=== PATIENT | male | born 1990 | race Caucasian/White ===

== ENCOUNTER 2020-02-11 10:09 | Emergency (ER) | payer SELFPAY ==
[2020-02-11 10:18] VITALS: BP 125/69; PULSE 59; RESP 16; TEMP 36.8; O2SAT 100
--- NOTE | 2020-02-11 10:29 | ED.GENADULT ---
HPI - General Adult General Chief complaint: Nausea/Vomiting/Diarrhea Stated complaint: stomach pain Time Seen by Provider: 02/11/20 10:23 Source: patient and RN notes reviewed Mode of arrival: ambulatory Limitations: no limitations History of Present Illness HPI narrative: Patient presents today with a 2-day history of nausea. Denies any additional symptoms to include vomiting, fever, abdominal pain, diarrhea, constipation. 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 Also states that his son was sick with similar symptoms last week, but has recovered. He has tried no [id number] medication for symptoms prior to arrival. States he does drink water and Gatorade throughout the day at work. He is presenting today requesting a work note because he called into work today. MD complaint: Nausea Related Data Allergies Allergy/AdvReac Type Severity Reaction Status Date / Time bacitracin AdvReac Redness of Verified 02/11/20 10:23 [From Triple Antibiotic] Skin neomycin AdvReac Redness of Verified 02/11/20 10:23 [From Triple Antibiotic] Skin polymyxin B AdvReac Redness of Verified 02/11/20 10:23 [From Triple Antibiotic] Skin Review of Systems Review of Systems: Narrative: CONSTITUTIONAL: Denies body aches, fever, chills, or sweats. EYES: Denies visual changes, redness, or discharge. ENT: Denies rhinorrhea, congestion, sore throat, or otalgia. CARDIOVASCULAR: Denies chest pain, palpitations, or edema. RESPIRATORY: Denies cough or dyspnea. GASTROINTESTINAL: Denies abdominal pain, vomiting, or diarrhea.+Nausea GENITOURINARY: Denies dysuria or hematuria. SKIN: Denies rash, itching, or wounds. MUSCULOSKELETAL: Denies back pain, joint pain, or myalgia. NEUROLOGIC: Denies headache, numbness, tingling, or weakness. PSYCH: Denies depression or anxiety. PMFSH Comments At time of signature, I have reviewed and agree with nursing past medical, surgical, social and family history unless otherwise noted. Please see nursing chart for further information. There is no relevant family history pertinent to the presenting complaint Exam Narrative: Exam Narrative: GENERAL: Well-appearing, well-nourished, and in no acute distress. HEAD: Normocephalic, atraumatic. EYES: EOMI. No redness or drainage. Conjunctivae normal. ENT: Mucous membranes pink and moist. Throat normal. Uvula midline. NECK: Normal AROM. Supple. No lymphadenopathy. CHEST: No respiratory distress. Clear to auscultation. HEART: Regular rate and rhythm. No murmur appreciated. Normal peripheral pulses. ABDOMEN: Soft, nontender, nondistended, normal active bowel sounds. MUSCULOSKELETAL: No bony tenderness. EXTREMITIES: Normal range of motion. No edema. SKIN: Warm, dry, no rash. Capillary refill normal. Normal skin turgor. NEURO: No focal deficits. Alert and oriented x3. Gait steady. PSYCH: Normal affect. No signs of depression or anxiety. Course Vital Signs Vital signs: Vital Signs Temperature 98.2 F 02/11/20 10:18 Pulse Rate 59 L 02/11/20 10:18 Respiratory Rate 16 02/11/20 10:18 Blood Pressure 125/69 02/11/20 10:18 Pulse Oximetry 100 02/11/20 10:18 Temperature 98.2 F 02/11/20 10:18 Pulse Rate 59 L 02/11/20 10:18 Respiratory Rate 16 02/11/20 10:18 Blood Pressure 125/69 02/11/20 10:18 Pulse Oximetry 100 02/11/20 10:18 Reviewed. Pt has been instructed to follow up with his PCP regarding his elevated blood pressure today. Medical Decision Making Differential Diagnosis Differential Diagnosis: Viral illness, heat related illness, dehydration, malingering Vital Signs Vital Signs: Vital Signs Temperature 98.2 F 02/11/20 10:18 Pulse Rate 59 L 02/11/20 10:18 Respiratory Rate 16 02/11/20 10:18 Blood Pressure 125/69 02/11/20 10:18 Pulse Oximetry 100 02/11/20 10:18 Temperature 98.2 F 02/11/20 10:18 Pulse Rate 59 L 02/11/20 10:18 Respiratory Rate 16
== END 2020-02-11 10:47 | disposition home or self-care (01) ==
PROVIDERS: Emergency Provider Nurse Practitioner; PCP Pediatrics
DX: R11.0 Nausea (principal)
CPT/HCPCS: 99201; G0463

== ENCOUNTER 2020-12-22 10:11 | Emergency (ER) | payer SELFPAY ==
[2020-12-22 10:22] VITALS: BP 147/89; PULSE 74; RESP 16; TEMP 36.6; O2SAT 100
[2020-12-22 11:16] LABS: Add Urine Microscopic? NO; Appearance Urine Clear (Clear); Bilirubin Urine Negative (Negative); Blood Urine Negative (Negative); Color Urine Straw (Yellow); Glucose Urine UA Negative (Negative); Ketones Urine Negative (Negative); Leukocyte Esterase Ur Negative LEU/UL (Negative); Nitrate Urine Negative (Negative); Protein Urine Negative (Negative); Urobilinogen Urine Negative mg/dL (<2.0)
[2020-12-22 11:18] LABS: Specific Grav Ur 1.003 (1.001-1.035)
--- NOTE | 2020-12-22 11:41 | ED.GENADULT ---
HPI - General Adult General Chief complaint: Urogenital-Male Stated complaint: Genital Discomfort Time Seen by Provider: 12/22/20 10:23 Source: patient and RN notes reviewed Mode of arrival: ambulatory Limitations: no limitations History of Present Illness HPI narrative: Patient is a 30-year-old male who presents to emergency department for evaluation of scrotal rash that has been present since June has been to emergency department and primary care for this with no resolution patient notes that he feels like there is a vein that he did not notice before and scrotum. Patient has been tested for STDs multiple times with negative results and denies any concern for STD at this time. Patient is requesting a referral for urology. On arrival patient in no distress no other complaints Related Data Allergies Allergy/AdvReac Type Severity Reaction Status Date / Time bacitracin AdvReac Redness of Verified 12/22/20 10:25 [From Triple Antibiotic] Skin neomycin AdvReac Redness of Verified 12/22/20 10:25 [From Triple Antibiotic] Skin polymyxin B AdvReac Redness of Verified 12/22/20 10:25 [From Triple Antibiotic] Skin Review of Systems Review of Systems: All systems reviewed & are unremarkable except as noted in HPI and below PMFSH Social History Social History (Updated 12/22/20 @ 11:45 by Migel Ibrahim PA-C) Smoking status: Never smoker Exam Narrative: Exam Narrative: GENERAL: Well-appearing, well-nourished, and in no acute distress. HEAD: Normocephalic, atraumatic. EYES: PERRLA and EOMI. ENT: Nares clear, no rhinorrhea or epistaxis. Mucous membranes moist. CHEST: Clear to auscultation. No respiratory distress. No wheezes rales or rhonchi HEART: Regular rate and rhythm. No murmur heard. EXTREMITIES: Normal range of motion. No edema. MALE GENITOURINARY: Normal male genitourinary SKIN: Warm, dry, no rash. NEURO: No focal deficits. Alert and oriented x3. PSYCH: Normal mood and affect. Course Course Emergency Course: Patient presented with ongoing concern for scrotal issues there is nothing obvious on exam patient will be referred to urology as planned and given reasons to return Vital Signs Vital signs: Vital Signs Temperature 97.8 F 12/22/20 10:22 Pulse Rate 74 12/22/20 10:22 Respiratory Rate 16 05/07/21 10:22 Blood Pressure 147/89 H 12/22/20 10:22 Pulse Oximetry 100 12/22/20 10:22 Temperature 97.8 F 12/22/20 10:22 Pulse Rate 74 12/22/20 10:22 Respiratory Rate 16 12/22/20 10:22 Blood Pressure 147/89 H 12/22/20 10:22 Pulse Oximetry 100 12/22/20 10:22 Medical Decision Making MDM Narrative Medical decision making narrative: Patient with normal male genitourinary as noted will be sent home. Patient provided with urology follow-up also advised to follow with primary care normal urinalysis Vital Signs Vital Signs: Vital Signs Temperature 97.8 F 12/22/20 10:22 Pulse Rate 74 12/22/20 10:22 Respiratory Rate 16 12/22/20 10:22 Blood Pressure 147/89 H 12/22/20 10:22 Pulse Oximetry 100 12/22/20 10:22 Temperature 97.8 F 12/22/20 10:22 Pulse Rate 74 12/22/20 10:22 Respiratory Rate 16 12/22/20 10:22 Blood Pressure 147/89 H 12/22/20 10:22 Pulse Oximetry 100 12/22/20 10:22 Lab Data Labs: Lab Results 12/22/20 Range/Units 11:09 Urine Color Straw (Yellow) Urine Appearance Clear (Clear) Urine pH 7.0 (5.0-9.0) Ur Specific [place] 1.003 (1.001-1.035) Urine Protein Negative (Negative) mg/dL Urine Glucose (UA) Negative (Negative) mg/dL Urine Ketones Negative (Negative) mg/dL Ur Blood (Man) Negative (Negative) Urine Nitrate Negative (Negative) Urine Bilirubin Negative (Negative) Urine Urobilinogen Negative (<2.0) mg/dL Leukocyte Esterase Rfl Negative (Negative) KRYSTAL/UL Discharge Plan Discharge Clinical Impression: Rash and nonspecific skin eruption Patient Disposition: Home, M[place]
== END 2020-12-22 11:57 | disposition home or self-care (01) ==
PROVIDERS: Emergency Medicine Emergency Medical Services; Emergency Provider Emergency Medicine
DX: R21 Rash and other nonspecific skin eruption (principal)
CPT/HCPCS: 81003; 99283

== ENCOUNTER 2022-02-20 08:30 | Emergency (ER) | payer SELFPAY ==
--- NOTE | ~2022-02-20 | XR_ITS ---
EXAMINATION: XR foot LT min 3V DATE: 02/20/2022 08:54 INDICATION: Left foot pain TECHNIQUE: Dorsoplantar, lateral, and 2 oblique views of the left foot were obtained. COMPARISON: None. FINDINGS: Bone alignment is normal. There is no fracture. There is soft tissue swelling of the fifth toe. IMPRESSION: 1. No acute osseous abnormality. Reviewed, dictated and finalized at location B.
--- NOTE | 2022-02-20 08:33 | ED.LOWEXIN ---
HPI - Extremity Injury (Lower) General Chief Complaint: Extremity Injury, Lower Stated Complaint: left foot pinky toe injury Time Seen by Provider: 02/20/22 08:33 Source: patient and RN notes reviewed History of Present Illness HPI Narrative: Patient is a 31-year-old male who presents the urgent care with complaints of left pinky toe pain, swelling and bruising. 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 Patient states that the pain has gotten much better but he is concerned about going back to work and walking 15 miles per day. Patient has been taking Tylenol/ibuprofen and using ice. No other acute complaints. No acute distress noted. Patient aware of the plan of care. Some parts of this dictation were generated by voice recognition software and may contain typographical and/or grammatical inaccuracies. Related Data Home Medications Medication Instructions Recorded Confirmed No Home Medications 02/20/22 02/20/22 Allergies Allergy/AdvReac Type Severity Reaction Status Date / Time bacitracin AdvReac Redness of Verified 02/20/22 08:41 [From Triple Antibiotic] Skin neomycin AdvReac Redness of Verified 02/20/22 08:41 [From Triple Antibiotic] Skin polymyxin B AdvReac Redness of Verified 02/20/22 08:41 [From Triple Antibiotic] Skin Review of Systems Review of Systems: CONSTITUTIONAL: Denies fever, chills, or sweats. EYES: Denies visual changes, redness, or discharge. ENT: Denies rhinorrhea, congestion, sore throat, or otalgia. CARDIOVASCULAR: Denies chest pain, palpitations, or edema. RESPIRATORY: Denies cough or dyspnea. GASTROINTESTINAL: Denies abdominal pain, nausea, vomiting, or diarrhea. GENITOURINARY: Denies dysuria or hematuria. SKIN: Denies rash or itching. MUSCULOSKELETAL: Reports of bruising and pain to the left pinky toe NEUROLOGIC: Denies headache, numbness, or weakness. All other systems reviewed are negative, except as documented in HPI. [facility] Social History Social History (Updated 12/22/20 @ 11:45 by Migel Ibrahim, PACésarC) Smoking status: Never smoker Comments At the time of my signature, I reviewed and agree with the nursing past medical, surgical, social, and family history. There is no relevant family history pertinent to the patient complaint. Exam Narrative: GENERAL: This is a well-nourished, well-developed patient, in no apparent distress. HEAD: normocephalic, atraumatic. EYES: PERRL. Sclera clear/white. Vision is grossly intact. EARS: External ears normal NOSE: External nose normal with no obvious nasal discharge, nares without redness, no rhinorrhea. THROAT: Mucous membranes moist NECK: Neck supple CARDIOVASCULAR: Regular rate and rhythm without murmurs, gallops, or rubs. RESPIRATORY: Clear to auscultation. Breath sounds equal bilaterally. No wheezes, rales, or rhonchi. SKIN: warm, intact with no suspicious lesions or rash, good texture and turgor. NEURO: awake, alert, and oriented to person, place and time. There were no obvious focal neurologic abnormalities. EXTREMITIES: Moderate ecchymosis noted to the left fifth digit with surrounding ecchymosis and tenderness extending to the mid dorsal foot covering the fifth through third metatarsals. Positive strong left pedal pulse with capillary refill less than 2 seconds. Course Course Level of Care: Express Care Visit Vital Signs Vital signs: Vital Signs Temperature 97.7 F 02/20/22 08:35 Pulse Rate 63 02/20/22 08:35 Respiratory Rate 16 02/20/22 08:35 Blood Pressure 132/71 02/20/22 08:35 Pulse Oximetry 99 02/20/22 08:35 Oxygen Delivery Room Air 02/20/22 08:35 Temperature 97.7 F 02/20/22 08:45 Pulse Rate 63 02/20/22 08:45 Respiratory Rate 16 02/20/22 08:45 Blood Pressure 132/71 02/20/22 08:45 Pulse Oximetry 99 02/20/22 08:45 Oxygen Delivery Room Air 02/20/22 08:45 Reviewed MDM - Extremity Injury (Low
[2022-02-20 08:35] VITALS: BP 132/71; PULSE 63; RESP 16; TEMP 36.5; O2SAT 99
[2022-02-20 08:45] VITALS: BP 132/71; PULSE 63; RESP 16; TEMP 36.5; O2SAT 99
== END 2022-02-20 09:09 | disposition home or self-care (01) ==
PROVIDERS: Emergency Provider Nurse Practitioner Family
DX: S93.505A Unspecified sprain of left lesser toe(s), initial encounter (principal); W22.09XA Striking against other stationary object, initial encounter
CPT/HCPCS: 73630; 99213; G0463

== ENCOUNTER 2022-07-31 12:29 | Emergency (ER) | payer SELFPAY ==
[2022-07-31 12:46] VITALS: BP 123/64; PULSE 73; RESP 18; TEMP 36.9; O2SAT 98
--- NOTE | 2022-07-31 14:29 | ED.MALEGU ---
HPI - Male Genitourinary General Chief complaint: Urogenital-Male Stated complaint: Urinary Problem Time Seen by Provider: 07/31/22 14:29 Source: patient and RN notes reviewed Mode of arrival: ambulatory Limitations: no limitations History of Present Illness HPI Narrative: 31 y/o male presented for c/o about 3 months of urinary frequency, urgency stating it has worsened over the past 2 weeks. Denies abdominal pain, back pain, nausea, vomiting, diarrhea, hematuria, urethral discharge/lesions, fevers or chills. Denies concern for STD at this time. Related Data Home Medications Medication Instructions Recorded Confirmed No Home Medications 02/20/22 07/31/22 Allergies Allergy/AdvReac Type Severity Reaction Status Date / Time bacitracin AdvReac Redness of Verified 07/31/22 14:00 [From Triple Antibiotic] Skin neomycin AdvReac Redness of Verified 07/31/22 14:00 [From Triple Antibiotic] Skin polymyxin B AdvReac Redness of Verified 07/31/22 14:00 [From Triple Antibiotic] Skin Review of Systems Review of Systems: CONSTITUTIONAL: Denies body aches, fever, chills, or sweats. CARDIOVASCULAR: Denies chest pain, palpitations, or edema. RESPIRATORY: Denies cough or dyspnea. GASTROINTESTINAL: Denies abdominal pain, nausea, vomiting, or diarrhea. GENITOURINARY: Reports dysuria, frequency, urgency, denies hematuria, flank pain SKIN: Denies rash, itching, or wounds. MUSCULOSKELETAL: Denies back pain or myalgia. [facility] Social History Social History Smoking status: Never smoker Comments At time of signature, I have reviewed and agree with nursing past medical, surgical, social and family history unless otherwise noted. Please see nursing chart for further information. There is no relevant family history pertinent to the presenting complaint Exam Narrative: GENERAL: Well-appearing and in no acute distress. CHEST: No respiratory distress. Clear to auscultation. HEART: Regular rate and rhythm. ABDOMEN: Soft, nontender, nondistended, normal active bowel sounds. No CVA tenderness deferred SKIN: Warm, dry, no rash. NEURO: No focal deficits. Alert and oriented x3. Gait steady. PSYCH: Normal affect. Course Course Emergency Course: Patient is aware of diagnosis, understands and agrees to treatment plan. Anticipatory guidance given. Patient agrees to follow-up as directed and is aware of reasons to seek care at the emergency department. Portions of this record may have been created with voice recognition software Level of Care: Express Care Visit Vital Signs Vital signs: Vital Signs Temperature 98.5 F 07/31/22 12:46 Pulse Rate 73 07/31/22 12:46 Respiratory Rate 18 07/31/22 12:46 Blood Pressure 123/64 07/31/22 12:46 Pulse Oximetry 98 07/31/22 12:46 Oxygen Delivery Room Air 07/31/22 12:46 Temperature 98.5 F 07/31/22 12:46 Pulse Rate 73 07/31/22 12:46 Respiratory Rate 18 07/31/22 12:46 Blood Pressure 123/64 07/31/22 12:46 Pulse Oximetry 98 07/31/22 12:46 Oxygen Delivery Room Air 07/31/22 12:46 Reviewed MDM - Male Genitourinary MDM Narrative Medical decision making narrative: Exam findings and UA show no apparent uti. Based on cc, Urine specimen collected for GC, chlamydia, trich. Informed Pt will be contacted w/ results when they become available if they are positive. Discussed with patient that it takes up to 7 days for results of cultures to be released and explained that we may treat empirically at this time. Declines treatment at this time and will return should tests be positive. I have instructed the patient to return to the ER at any time if there are any new or worsening symptoms. The patient expressed understanding of and agreement with this plan. Differential Diagnosis Differential diagnosis: Likely urinary tract infection, urethritis, epididymitis and genital herpes simplex L
== END 2022-07-31 14:45 | disposition home or self-care (01) ==
PROVIDERS: Emergency Provider Nurse Practitioner Family
DX: R30.0 Dysuria (principal)
CPT/HCPCS: 81003; 87491; 87591; 87661; 99213; G0463

== ENCOUNTER 2022-12-25 12:45 | Emergency (ER) | payer OTHER, SELFPAY ==
--- NOTE | ~2022-12-25 | CT_ITS ---
EXAMINATION: CT abdomen pelvis wo con DATE: 12/25/2022 13:21 INDICATION: Umbilical hernia TECHNIQUE: Computed tomography (CT) of the abdomen and pelvis was performed without intravenous contr ast. The dose-length product was 442.85 mGy-cm. Automated exposure control and iterative reconstructi on technique were employed. COMPARISON: None. FINDINGS: Lung bases are unremarkable. Heart size normal. No significant pleural or pericardial effus ions. There is a small supraumbilical ventral hernia containing fat and soft tissue. Fat necrosis at the hernia site cannot be excluded. Small fat-containing umbilical hernia. The liver, spleen, pancreas, adrenal glands and kidneys are unremarkable for noncontrast CT. Gallblad jerardo is present. Nonobstructive bowel gas pattern. Normal appendix. No abnormal pelvic masses or fluid collections. No significant vascular abnormality. No lymphadenopathy. No acute osseous abnormality. IMPRESSION: 1. Small supraumbilical ventral hernia containing fat with possible fat necrosis. 2: Small fat-containing umbilical hernia. Reviewed, dictated and finalized at location B. IMPRESSION: 1. Small supraumbilical ventral hernia containing fat with possible fat necrosi s. 2: Small fat-containing umbilical hernia.
[2022-12-25 12:47] VITALS: BP 151/83; PULSE 84; RESP 16; TEMP 37.1; O2SAT 99
[2022-12-25 13:25] LABS: Appearance Urine Clear (Clear); Bilirubin Urine Negative (Negative); Blood Urine Negative (Negative); Color Urine Yellow (Yellow); Glucose Urine UA Negative (Negative); Ketones Urine Negative (Negative); Leukocyte Esterase Ur Negative LEU/UL (Negative); Nitrate Urine Negative (Negative); Protein Urine Negative (Negative); Specific Grav Ur 1.015 (1.001-1.035); Urobilinogen Urine 0.2 mg/dL (<2.0); pH Urine 7.5 (5.0-9.0)
[2022-12-25 13:26] LABS: Add Urine Microscopic? NO; Basophils Absolute Auto 0.1 K/mm3 (0.0-0.1); Basophils Percent Auto 0.9 % (0.2-1.2); Eosinophils Absolute Auto 0.3 K/mm3 (0-0.3); Eosinophils Percent Auto 2.9 % (0-4.4); Hematocrit 48.4 % (42.0-52.0); Hemoglobin 16.2 g/dL (14.0-18.0); Immature Granulocyte Absolute 0.04 K/mm3 (0.00-0.031); Immature Granulocyte Percent A 0.4 % (0-0.5); Immature Platelet Fraction Pct 25.8 % (0.9-11.2); Lymphocytes Absolute Auto 2.16 K/mm3 (0.9-3.2); Lymphocytes Percent Auto 21.3 % (18.3-44.2); Mean Corpuscular HGB Conc 33.5 g/dl (32-36); Mean Corpuscular Hemoglobin 32.3 pg (26-34); Mean Corpuscular Volume 96.6 fl (80-100); Mean Platelet Volume 12.9 fl (7.4-10.4); Monocytes Absolute Auto 0.6 K/mm3 (0.1-0.6); Monocytes Percent Auto 5.9 % (2.6-8.5); Neutrophils Percent Auto 68.6 % (45.5-73.1); Platelet Count Result 171 k/mm3 (150-375); Red Blood Count 5.01 M/mm3 (4.6-6.20); Red Cell Distribution Width 12.9 % (11.5-14.5); White Blood Count 10.2 K/mm3 (4.5-10.0)
[2022-12-25 13:32] LABS: Alanine Aminotransferase 45 U/L (6-50); Alkaline Phosphatase 47 U/L (38-126); Anion Gap 9 mmol/L (8-16); Aspartate Amino Transferase 43 U/L (17-59); Bilirubin,Total 0.7 mg/dL (0.2-1.3); Blood Urea Nitrogen 12 mg/dL (9-20); Calcium 9.5 mg/dL (8.4-10.2); Carbon Dioxide 27 mmol/L (22-30); Chloride 103 mmol/L (98-107); Estimated CRCL calculation 118 ml/min; Estimated Glomerular Filt Rate > 60; Glucose 116 mg/dL (65-110); Lipase 55 U/L (23-300); Potassium 3.8 mmol/L (3.4-5.0); Sodium 139 mmol/L (137-145)
--- NOTE | 2022-12-25 13:35 | ED.ABDPAIN ---
HPI - Abdominal Pain General Chief Complaint: Abdominal Pain Stated Complaint: hernia Time Seen by Provider: 12/25/22 12:56 History of Present Illness HPI narrative: 32-year-old male presents to the emergency room for evaluation of a lump to his right upper abdomen. Patient states lump is painful, and is more obviously present with standing. States the lump is not present when lying flat. States when he stands up he is able to push the lump back into his abdomen. Denies any diarrhea or constipation. Denies fevers. Denies dysuria. Related Data Home Medications Medication Instructions Recorded Confirmed No Home Medications 02/20/22 07/31/22 Allergies Allergy/AdvReac Type Severity Reaction Status Date / Time bacitracin AdvReac Redness of Verified 12/25/22 12:50 [From Triple Antibiotic] Skin neomycin AdvReac Redness of Verified 12/25/22 12:50 [From Triple Antibiotic] Skin polymyxin B AdvReac Redness of Verified 12/25/22 12:50 [From Triple Antibiotic] Skin Review of Systems Review of Systems: CONSTITUTIONAL: Denies fever, chills, or sweats. EYES: Denies visual changes, redness, or discharge. ENT: Denies rhinorrhea, congestion, sore throat, or otalgia. CARDIOVASCULAR: Denies chest pain, palpitations, or edema. RESPIRATORY: Denies cough or dyspnea. GASTROINTESTINAL: Denies abdominal pain, nausea, vomiting, or diarrhea. GENITOURINARY: Denies dysuria or hematuria. SKIN: Denies rash or itching. MUSCULOSKELETAL: Denies back pain, joint pain, or myalgia. NEUROLOGIC: Denies headache, numbness, dizziness, or weakness. PSYCHIATRIC: Denies anxiety or depression. [facility] Social History Social History Smoking status: Never smoker Exam Narrative: GENERAL: Well-appearing, well-nourished, no physical limitations, and in no acute distress. HEAD: Normocephalic, atraumatic. EYES: Conjunctivae normal, PERRLA and EOMI. CHEST: Clear to auscultation. No respiratory distress. No wheezes rales or rhonchi. HEART: Regular rate and rhythm. No murmur heard. Normal peripheral pulses. ABDOMEN: Soft, nontender, nondistended, normal active bowel sounds. Reducible right ventral hernia. No erythema. EXTREMITIES: Normal range of motion. No edema. No clubbing or cyanosis SKIN: Warm, dry, no rash. No noted wounds NEURO: No focal deficits. Alert and oriented x3. MAEW. CN's II-XI intact bilaterally, normal gait PSYCH: Cooperative. Normal mood and affect. Course Vital Signs Vital signs: Vital Signs Temperature 37.1 C 12/25/22 12:47 Pulse Rate 84 12/25/22 12:47 Respiratory Rate 16 12/25/22 12:47 Blood Pressure 151/83 H 12/25/22 12:47 Pulse Oximetry 99 12/25/22 12:47 Oxygen Delivery Room Air 12/25/22 12:47 Temperature 37.1 C 12/25/22 12:47 Pulse Rate 84 12/25/22 12:47 Respiratory Rate 16 12/25/22 12:47 Blood Pressure 151/83 H 12/25/22 12:47 Pulse Oximetry 99 12/25/22 12:47 Oxygen Delivery Room Air 12/25/22 12:47 MDM - Abdominal Pain Lab Data 12/25/22 13:08 12/25/22 13:08 Labs: Lab Results 12/25/22 Range/Units 13:08 WBC 10.2 H (4.5-10.0) K/mm3 RBC 5.01 (4.6-6.20) M/mm3 Hgb 16.2 (14.0-18.0) g/dL Hct 48.4 (42.0-52.0) % MCV 96.6 (80-100) fl MCH 32.3 (26-34) pg MCHC 33.5 (32-36) g/dl RDW 12.9 (11.5-14.5) % Plt Count 171 (150-375) k/mm3 MPV 12.9 H (7.4-10.4) fl Immature Gran % (Auto) 0.4 (0-0.5) % Neut % (Auto) 68.6 (45.5-73.1) % Lymph % (Auto) 21.3 (18.3-44.2) % [place] % (Auto) 5.9 (2.6-8.5) % Eos % (Auto) 2.9 (0-4.4) % Baso % (Auto) 0.9 (0.2-1.2) % Lymph # (Auto) 2.16 (0.9-3.2) K/mm3 [place] # (Auto) 0.6 (0.1-0.6) K/mm3 Eos # (Auto) 0.3 (0-0.3) K/mm3 Baso # (Auto) 0.1 (0.0-0.1) K/mm3 Abs Immat Gran (auto) 0.04 H (0.00-0.031) K/mm3 Absolute Neuts (auto) 7.0 H (1.3-6.7) K/mm3 Absolute Nucleated RBC 0.0 (0.0-0.
== END 2022-12-25 14:43 | disposition home or self-care (01) ==
PROVIDERS: Emergency Provider Nurse Practitioner Family
DX: K43.9 Ventral hernia without obstruction or gangrene (principal); K42.9 Umbilical hernia without obstruction or gangrene
CPT/HCPCS: 36415; 74176; 80053; 81003; 83690; 85025; 85055; 99284

== ENCOUNTER 2023-09-28 14:52 | Emergency (ER) | payer SELFPAY ==
[2023-09-28 14:56] VITALS: BP 149/87; PULSE 89; RESP 20; TEMP 37; O2SAT 99
--- NOTE | 2023-09-28 15:11 | ED.GENADULT ---
HPI - General Adult General Chief complaint: Unspecified Stated complaint: veins showing up all over Source: patient Mode of arrival: ambulatory Limitations: no limitations History of Present Illness HPI narrative: Pt presents with concerns that his veins are more noticeable in appearance. He noted this after he had an umbilical hernia surgery last March. He states that he these vessels are more visible in his arms and chest. He has associated pain in the areas of concern but state that the discomfort seems to be limited to the vessels as opposed to muscle or joint pain. He denies any swelling in the lower extremities. No chest pain, shortness of breath or cough. He has experienced some fatigue and has decreased ability to lift heavy objects at work. He is sleeping well at night. He denies illicit drug use. He is not aware of any family history of medical problems. Denies any depression, SI, HI. He drinks ETOH rarely and smokes 1/4 ppd. Denies illicit drug use. He is wondering if he is diabetic. Related Data Home Medications Medication Instructions Recorded Confirmed No Home Medications 02/20/22 01/09/23 Allergies Allergy/AdvReac Type Severity Reaction Status Date / Time bacitracin AdvReac Redness of Verified 01/08/23 10:36 [From Triple Antibiotic] Skin neomycin AdvReac Redness of Verified 01/08/23 10:36 [From Triple Antibiotic] Skin polymyxin B AdvReac Redness of Verified 01/08/23 10:36 [From Triple Antibiotic] Skin Review of Systems Review of Systems: CONSTITUTIONAL: Reports fatigue. denies fever, chills, or sweats. EYES: Denies visual changes, redness, or discharge. ENT: Denies rhinorrhea, congestion, sore throat, or otalgia. CARDIOVASCULAR: Denies chest pain, palpitations, or edema. RESPIRATORY: Denies cough or dyspnea. GASTROINTESTINAL: Denies abdominal pain, nausea, vomiting, or diarrhea. GENITOURINARY: Denies dysuria or hematuria. SKIN: Reports visible blood vessels in his arms and chest. Denies rash or itching. MUSCULOSKELETAL: Denies back pain, joint pain, or myalgia. NEUROLOGIC: Denies headache, numbness, dizziness, or weakness. PSYCHIATRIC: Denies anxiety or depression. [facility] Past Medical History Medical History No pertinent past medical history Surgical History Surgical History No pertinent past surgical history Family History Family History Mother Unknown family medical history Social History Social History Smoking packs per day: 0.25 Smoking cigarettes per day: 5.0 Smoking status: Current every day smoker Alcohol intake: current Alcohol use details: rare Substance use: current Substance use type: marijuana Gender identity (if verbalized by the patient): Male Spiritual care concerns: No Exam Narrative: GENERAL: Well-appearing, well-nourished, and in no acute distress. HEAD: Normocephalic, atraumatic. EYES: PERRLA and EOMI. ENT: Nares clear, no rhinorrhea or epistaxis. Mucous membranes moist. Oropharynx without tonsillar hypertrophy exudate or other lesions. Bilateral TMs pearly colmenares nonbulging NECK: Supple. No adenopathy or masses. No carotid bruits or JVD CHEST: Clear to auscultation. No respiratory distress. No wheezes rales or rhonchi HEART: Regular rate and rhythm. No murmur heard. Normal peripheral pulses. ABDOMEN: Soft, nontender, nondistended, normal active bowel sounds. EXTREMITIES: Normal range of motion. No edema. SKIN: Warm, dry, no rash. He does have some superficial spider veins visible NEURO: No focal deficits. Alert and oriented x3. PSYCH: Normal mood and affect. Course Course Emergency Course: This is a 32-year-old male who presented for evaluation of generally not feeli
== END 2023-09-28 15:19 | disposition home or self-care (01) ==
PROVIDERS: Emergency Provider Nurse Practitioner
DX: R53.83 Other fatigue (principal); I87.9 Disorder of vein, unspecified; F17.210 Nicotine dependence, cigarettes, uncomplicated; F12.90 Cannabis use, unspecified, uncomplicated
CPT/HCPCS: 99211; G0463

== ENCOUNTER 2023-11-25 08:44 | Emergency (ER) | payer OTHER, SELFPAY ==
--- NOTE | ~2023-11-25 | XR_ITS ---
EXAMINATION: XR foot LT min 3V DATE: 11/25/2023 09:23 INDICATION: Left foot pain TECHNIQUE: Dorsoplantar, two oblique and lateral views of the left foot were obtained. COMPARISON: None. FINDINGS: Alignment is normal. No fracture. Typical pattern of mild polyarticular osteoarthritis at the first m etatarsophalangeal and a few of the tarsal metatarsal and interphalangeal joints. No cortical erosion s suggest inflammatory arthritis. No periosteal reaction. Soft tissues are unremarkable. IMPRESSION: 1. 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 No acute osseous abn ormality. Reviewed, dictated and finalized at location B. IMPRESSION: 1. 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 No acute osseous abnormality.
[2023-11-25 08:56] VITALS: BP 149/84; PULSE 74; RESP 18; TEMP 36.8; O2SAT 100
--- NOTE | 2023-11-25 09:16 | ED.GENADULT ---
HPI - General Adult General Chief complaint: Extremity Injury, Lower Stated complaint: Left foot injury - WC Source: patient Mode of arrival: ambulatory Limitations: no limitations History of Present Illness HPI narrative: Pt presents for evaluation of left foot pain yesterday. 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 Since that time he has had constant pain in dorsal aspect of the left foot. Pain is 2/10 currently but increases to 8/10 with weightbearing. He took some aleve yesterday which seemed to help. He denies paresthesias. Related Data Allergies Allergy/AdvReac Type Severity Reaction Status Date / Time bacitracin AdvReac Redness of Verified 11/25/23 09:02 [From Triple Antibiotic] Skin neomycin AdvReac Redness of Verified 11/25/23 09:02 [From Triple Antibiotic] Skin polymyxin B AdvReac Redness of Verified 11/25/23 09:02 [From Triple Antibiotic] Skin Review of Systems Review of Systems: CONSTITUTIONAL: Denies fever, chills, or sweats. EYES: Denies visual changes, redness, or discharge. ENT: Denies rhinorrhea, congestion, sore throat, or otalgia. CARDIOVASCULAR: Denies chest pain, palpitations, or edema. RESPIRATORY: Denies cough or dyspnea. GASTROINTESTINAL: Denies abdominal pain, nausea, vomiting, or diarrhea. GENITOURINARY: Denies dysuria or hematuria. SKIN: Denies rash or itching. MUSCULOSKELETAL: Reports left foot pain NEUROLOGIC: Denies headache, numbness, dizziness, or weakness. PSYCHIATRIC: Denies anxiety or depression. [facility] Past Medical History Medical History No pertinent past medical history Surgical History Surgical History No pertinent past surgical history Family History Family History Mother Unknown family medical history Social History Social History Smoking packs per day: 0.25 Smoking cigarettes per day: 5.0 Smoking status: Current every day smoker Alcohol intake: current Alcohol use details: rare Substance use: current Substance use type: marijuana Gender identity (if verbalized by the patient): Male Spiritual care concerns: No Exam Narrative: GENERAL: Well-appearing, well-nourished, and in no acute distress. HEAD: Normocephalic, atraumatic. EYES: PERRLA and EOMI. ENT: Nares clear, no rhinorrhea or epistaxis. Mucous membranes moist. Oropharynx without tonsillar hypertrophy exudate or other lesions. Bilateral TMs pearly colmenares nonbulging NECK: Supple. No adenopathy or masses. No carotid bruits or JVD CHEST: Clear to auscultation. No respiratory distress. No wheezes rales or rhonchi HEART: Regular rate and rhythm. No murmur heard. Normal peripheral pulses. ABDOMEN: Soft, nontender, nondistended, normal active bowel sounds. EXTREMITIES: Able to dorsi and plantarflex the left foot. Able to wiggle all digits of the left foot. Tenderness over the 4th metatarsal of the left foot SKIN: Warm, dry, no rash. Thickened hypertrophic changes to nailplate of the left great toe. NEURO: No focal deficits. Alert and oriented x3. PSYCH: Normal mood and affect. Course Course Emergency Course: THIS IS A 32-YEAR-OLD MALE WHO PRESENTED FOR EVALUATION OF LEFT FOOT PAIN. X-RAY NEGATIVE FOR FRACTURE. EXAM IS CONSISTENT WITH STRAIN. GIVEN IBUPROFEN HERE. DISCHARGE WITH IBUPROFEN. ADVISED ON RICE THERAPY. INCREASE HYDRATION. FOLLOW UP WITH PRIMARY PROVIDER. GO TO THE ER FOR WORSENING SYMPTOMS. PT IN AGREEMENT WITH PLAN OF CARE. Level of Care: Express Care Visit Vital Signs Vital signs: Vital Signs Temperature 36.8 C 11/25/23 08:56 Pulse Rate 74 11/25/23 08:56 Respiratory Rate 18 11/25/23 08:56 Blood Pressure 149/84 H 11/25/23 08:
[2023-11-25] MEDS: IBUPROFEN 400 MG TABLET 800 MG PO (09:24)
== END 2023-11-25 09:47 | disposition home or self-care (01) ==
PROVIDERS: Emergency Provider Nurse Practitioner
DX: S96.912A Strain of unspecified muscle and tendon at ankle and foot level, left foot, initial encounter (principal); X50.9XXA Other and unspecified overexertion or strenuous movements or postures, initial encounter; Y99.0 Civilian activity done for income or pay; F17.210 Nicotine dependence, cigarettes, uncomplicated; F12.90 Cannabis use, unspecified, uncomplicated
CPT/HCPCS: 73630; 99213; A9270; G0463

== ENCOUNTER 2024-04-05 11:53 | Emergency (ER) | payer OTHER, SELFPAY ==
[2024-04-05 12:00] VITALS: BP 134/83; PULSE 73; RESP 20; TEMP 36.8; O2SAT 100
--- NOTE | 2024-04-05 12:14 | ED.SKABFB ---
HPI - Skin/Abscess/Foreign Bdy General Chief complaint: Skin/Abscess/Foreign Body Stated complaint: Rash Time Seen by Provider: 04/05/24 12:14 Source: patient Mode of arrival: ambulatory Limitations: no limitations History of Present Illness HPI narrative: 33 yo M presents stating that he slid down a hill today that was covered in poison jesus and poison oak. He currently does not have a poison jesus rash. He states that he is allergic and has had pretty bad rashes in the past . All systems reviewed and negative except as noted above. Related Data Allergies Allergy/AdvReac Type Severity Reaction Status Date / Time bacitracin AdvReac Redness of Verified 11/25/23 09:02 [From Triple Antibiotic] Skin neomycin AdvReac Redness of Verified 11/25/23 09:02 [From Triple Antibiotic] Skin polymyxin B AdvReac Redness of Verified 11/25/23 09:02 [From Triple Antibiotic] Skin Review of Systems Review of Systems: CONSTITUTIONAL: Denies fever, chills, or sweats. EYES: Denies visual changes, redness, or discharge. ENT: Denies rhinorrhea, congestion, sore throat, or otalgia. CARDIOVASCULAR: Denies chest pain, palpitations, or edema. RESPIRATORY: Denies cough or dyspnea. GASTROINTESTINAL: Denies abdominal pain, nausea, vomiting, or diarrhea. GENITOURINARY: Denies dysuria or hematuria. SKIN: Denies rash or itching. MUSCULOSKELETAL: Denies back pain, joint pain, or myalgia. NEUROLOGIC: Denies headache, numbness, or weakness. PSYCHIATRIC: Denies anxiety or depression. All other systems reviewed are negative, except as documented in HPI. [facility] Past Medical History Medical History No pertinent past medical history Surgical History Surgical History No pertinent past surgical history Family History Family History Mother Unknown family medical history Social History Social History Smoking packs per day: 0.25 Smoking cigarettes per day: 5.0 Smoking status: Current every day smoker Alcohol intake: current Alcohol use details: rare Substance use: current Substance use type: marijuana Gender identity (if verbalized by the patient): Male Spiritual care concerns: No Comments At time of signature, agree with nursing past medical, surgical, social and family history. There is no relevant family history pertinent to the presenting complaint. Exam Narrative: GENERAL: This is a well-nourished, well-developed patient, in no apparent distress. HEAD: normocephalic, atraumatic. EYES: PERRL. Sclera clear/white. Vision is grossly intact. EARS: External ears normal NOSE: External nose normal NECK: Neck supple, non-tender without lymphadenopathy, masses or thyromegaly. CARDIOVASCULAR: Regular rate and rhythm without murmurs, gallops, or rubs. RESPIRATORY: Clear to auscultation. Breath sounds equal bilaterally. No wheezes, rales, or rhonchi. SKIN: warm, Dry, intact with no suspicious lesions or rash, good texture and turgor. NEURO: awake, alert, and oriented to person, place and time. There were no obvious focal neurologic abnormalities. EXTREMITIES: No joint tenderness, effusion, or edema noted. Course Course Level of Care: Express Care Visit Vital Signs Vital signs: Vital Signs Temperature 36.8 C 04/05/24 12:00 Pulse Rate 73 04/05/24 12:00 Respiratory Rate 20 04/05/24 12:00 Blood Pressure 134/83 04/05/24 12:00 Pulse Oximetry 100 04/05/24 12:00 Oxygen Delivery Room Air 04/05/24 12:00 Temperature 36.8 C 04/05/24 12:00 Pulse Rate 73 04/05/24 12:00 Respiratory Rate 20 04/05/24 12:00 Blood Pressure 134/83 04/05/24 12:00 Pulse Oximetry 100 04/05/24 12:00 Oxygen Delivery Room Air 04/05/24 12:00 Reviewed MDM - Skin
== END 2024-04-05 12:29 | disposition home or self-care (01) ==
PROVIDERS: Emergency Provider Nurse Practitioner Family
DX: Z71.1 Person with feared health complaint in whom no diagnosis is made (principal); F17.210 Nicotine dependence, cigarettes, uncomplicated
CPT/HCPCS: 99213; G0463